=== PATIENT | male | born 1960 | race Two or more races ===

== ENCOUNTER 2019-01-08 13:25 | Emergency (ER) | payer MEDICAID ==
[~2019-01-08] VITALS: Ht 175.3 cm; Wt 81.6 kg
[2019-01-08 13:39] VITALS: BP 130/107
--- NOTE | 2019-01-08 14:25 | NUR ---
For Discharge- Verbalized understanding. Home ambulatory Stable.
== END 2019-01-08 14:27 | disposition home or self-care (01) ==
LOC: ER 13:25
DX: B02.9 Zoster without complications (principal); I10 Essential (primary) hypertension; M10.9 Gout, unspecified